=== PATIENT | male | born 1940 | race Caucasian/White ===

== ENCOUNTER 2021-08-07 13:27 | Outpatient (CLI) | payer MEDICARE, BC, SELFPAY ==
--- NOTE | 2021-08-07 13:45 | CRLHL7_ITS ---
For Patients: As a result of the Century Cures Act, medical imaging exams and procedure reports are released immediately into your electronic medical record. You may view this report before your referring provider. If you have questions, please contact your health care provider. Indication: Cervical myelopathy. Technique: MRI of the cervical spine was performed without the use of intravenous contrast. Comparison: Thoracic spine MRI the same day. Findings: The cervical vertebral body heights are maintained without fracture. No marrow infiltrative process. Mild to moderate multilevel disc height loss and desiccation. Straightening with slight reversal of the cervical lordosis. No abnormal cord signal. C2-3: No spinal canal or neural foraminal narrowing. C3-4: Disc osteophyte complex with mild spinal canal narrowing. Moderately severe right and moderate left neural foraminal narrowing secondary to uncovertebral and facet hypertrophy. Potential impingement of the right C4 nerve. C4-5: Mild disc bulge with mild spinal canal narrowing. Moderately severe bilateral neural foraminal narrowing secondary to uncovertebral and facet hypertrophy. Potential impingement of the C5 nerves. C5-6: Disc osteophyte complex with mild spinal canal narrowing. Severe left with mild to moderate right neural foraminal narrowing secondary to uncovertebral joint and facet hypertrophy. Potential impingement of the left C6 nerve. C6-7: Disc osteophyte complex with mild spinal canal narrowing. Moderately severe bilateral neural foraminal narrowing secondary to uncovertebral and facet hypertrophy. Potential impingement of the C7 nerves. C7-T1: No spinal canal or neural foraminal narrowing. Impression: 1. At C3-4, mild spinal canal with moderately severe right and moderate left neural foraminal narrowing. Potential right C4 nerve impingement. 2. At C4-5, mild spinal canal with moderately severe bilateral neural foraminal narrowing. Potential bilateral C5 nerve impingement. 3. At C5-6, mild spinal canal with severe left and [id number] right neural foraminal narrowing. Potential impingement of the left C6 nerve. 4. At C6-7, mild spinal canal with moderately severe bilateral neural foraminal narrowing. Potential impingement of the C7 nerves. Dictated by Karl Fermin MD @ 08/07/2021 4:36:52 PM (Electronically Signed)
--- NOTE | 2021-08-07 14:30 | CRLHL7_ITS ---
For Patients: As a result of the Century Cures Act, medical imaging exams and procedure reports are released immediately into your electronic medical record. You may view this report before your referring provider. If you have questions, please contact your health care provider. Indication: Thoracic myelopathy. Technique: Multiplanar, multisequence MRI of the thoracic spine was performed without the use of intravenous contrast. Comparison: MRI cervical spine the same day. Findings: The thoracic vertebral body heights are maintained without fracture. No marrow infiltrative process. Mild multilevel disc height loss and desiccation. Slight exaggeration of the upper thoracic kyphosis. No significant spondylolisthesis. No abnormal cord signal. T10-11: mild to moderate bilateral neural foraminal narrowing secondary to facet hypertrophy. Mild spondylosis throughout the remaining thoracic spine, without overt evidence of spinal canal or neuroforaminal compromise. Impression: 1. At T10-11, mild to moderate bilateral neural foraminal narrowing. 2. Mild multilevel spondylosis throughout the remaining thoracic spine without high-grade spinal canal or neural foraminal narrowing. 3. No abnormal cord signal. Dictated by Karl Fermin MD @ 08/07/2021 4:41:38 PM (Electronically Signed)
== END 2021-08-07 13:28 | disposition home or self-care (01) ==
LOC: MRI 13:31
PROVIDERS: PCP Family Medicine; Visit Provider Orthopaedic Surgery Orthopaedic Surgery of the Spine
DX: G95.9 Disease of spinal cord, unspecified (principal); M50.21 Other cervical disc displacement, high cervical region; M50.222 Other cervical disc displacement at C5-C6 level; M50.223 Other cervical disc displacement at C6-C7 level
CPT/HCPCS: 72141; 72146

== ENCOUNTER 2021-11-26 15:22 | Outpatient (CLI) | payer MEDICARE, BC, SELFPAY ==
--- NOTE | 2021-11-26 15:30 | CRLHL7_ITS ---
For Patients: As a result of the Century Cures Act, medical imaging exams and procedure reports are released immediately into your electronic medical record. You may view this report before your referring provider. If you have questions, please contact your health care provider. Indication: Right buttock and leg pain Technique: Multiplanar, multisequence, MRI of the lumbar spine, obtained without contrast. Comparison: MRI lumbar spine 06/26/2021 Findings: The lumbar lordosis is preserved. Grade 1 anterolisthesis at L3-4, similar. Interval changes of L4-5 decompressive laminectomy. No suspicious fluid collections. No acute osseus abnormality. Possible degenerative cystic change at the left L4 superior articular process, similar. Small facet joint effusions at L3-4 and L4-5. The conus medullaris terminates at approximately L1. No suspicious findings in the prevertebral and paraspinal soft tissues. Partial bony ankylosis across the left SI joint. T12-L1: No significant neural foramen or spinal canal stenosis. L1-L2: No significant neural foramen or spinal canal stenosis. L2-L3: Facet arthropathy. No significant foraminal or spinal canal stenosis. Anterolisthesis, L3-L4: Minimal anterolisthesis, facet arthropathy. No significant foraminal or spinal canal stenosis. L4-L5: Decompressive laminectomy, shallow disc bulge, facet arthropathy. Spinal canal now appears widely patent. Mild left, moderate right foraminal stenosis. L5-S1: Facet arthropathy. Mild left foraminal narrowing. No spinal canal stenosis. Impression: 1. Interval changes of L4-5 decompressive laminectomy. Spinal canal at this level now appears widely patent. 2. No acute osseous abnormality or suspicious fluid collection. 3. Residual moderate right foraminal stenosis at L4-5, and mild left foraminal narrowing at L4-5 and L5-S1. 4. 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 Dictated by Janeen Delgado MD @ 11/27/2021 9:57:14 AM (Electronically Signed)
== END 2021-11-26 15:23 | disposition home or self-care (01) ==
LOC: MRI 15:22
PROVIDERS: PCP Family Medicine; Visit Provider Orthopaedic Surgery
DX: M79.604 Pain in right leg (principal); M48.061 Spinal stenosis, lumbar region without neurogenic claudication; M53.3 Sacrococcygeal disorders, not elsewhere classified
CPT/HCPCS: 72148

== ENCOUNTER 2022-01-05 14:22 | Outpatient (CLI) | payer MEDICARE, BC, SELFPAY | END 2022-01-05 14:23 | disposition home or self-care (01) | PROVIDERS: PCP Family Medicine; Visit Provider Family Medicine | DX: M17.12 Unilateral primary osteoarthritis, left knee (principal); M25.562 Pain in left knee | CPT/HCPCS: 64454 ==

== ENCOUNTER 2022-01-26 13:14 | Outpatient (CLI) | payer MEDICARE, BC, SELFPAY | END 2022-01-26 13:15 | disposition home or self-care (01) | LOC: INJ CL 13:14 | PROVIDERS: PCP Family Medicine; Visit Provider Family Medicine | DX: M17.12 Unilateral primary osteoarthritis, left knee (principal); G89.29 Other chronic pain; M25.562 Pain in left knee | CPT/HCPCS: 64624; J2250; J3010 ==

== ENCOUNTER 2022-09-21 17:04 | Outpatient (CLI) | payer MEDICARE, BC, SELFPAY ==
--- NOTE | 2022-09-21 17:30 | MR_ITS ---
EXAM: MRI OF THE LEFT ANKLE AND HINDFOOT CLINICAL INFORMATION: The patient is a 81-year-old with left ankle pain. PRIOR SURGERY: None reported. COMPARISON STUDIES: No prior studies are available for comparison. TECHNICAL INFORMATION: Imaging was performed on a high-field, 1.5 Jacqueline MR scanner. Sagittal proton-density, T2, and STIR imaging of the left ankle and hindfoot was performed in addition to coronal proton-density and coronal T2 imaging. Axial proton-density and T2 imaging was also produced. FINDINGS: Osseous structures: Fat-suppressed imaging of the distal tibia and distal fibula shows no evidence for marrow edema or cortical injury. There is no evidence for fracture. No evidence for acute bony abnormality of the talus or calcaneus can be seen. 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 Os trigonum: No os trigonum is identified. No definite MR signs of posterior impingement are seen. Tarsal coalition: No calcaneonavicular, talocalcaneal or cubonavicular coalition is present. Tibiotalar joint: Effusion: Mild. Nonspecific subcutaneous soft tissue edema and/or hemorrhage can be seen circumferentially about the ankle. Ganglion cyst: None. Osteochondral surfaces: Chondromalacia and chondral thinning along the articular surfaces of the tibiotalar joint can be seen. No definite evidence for osteochondral fragmentation along the articular surfaces is present. Loose bodies: None. Subtalar joint: Effusion: None. Articular cartilage: No chondral or osteochondral abnormality identified. Tarsal joints: Talonavicular: Within normal limits. Calcaneocuboid: Within normal limits. 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 Ligamentous structures: Syndesmotic Ligaments: The lateral syndesmotic ligaments appear intact. No widening of the syndesmosis can be seen. Lateral Ligaments: The anterior talofibular, calcaneofibular, and posterior talofibular ligaments appear intact. No impinging mass within the lateral gutter is identified. Medial Ligaments: The superficial and deep components of the medial deltoid ligamentous complex appear intact. Spring Ligaments: Intact. Sinus Tarsi: Intact cervical and interosseous ligaments. Flexor tendons: Posterior tibial: Normal, without tendinopathy, tenosynovitis or tear. Flexor digitorum longus: Normal. Flexor hallucis longus: Normal, without convincing pathologic tenosynovitis. Peroneus longus and brevis: Mild tendinosis of the peroneus longus and brevis can be seen with mild tenosynovitis. No well-defined tearing is identified. There is no evidence for peroneal rupture or dislocation. Extensor tendons: Tibialis anterior: Normal, without tendinopathy, tenosynovitis or tear. Extensor hallucis longus: Normal. Extensor digitorum longus: Normal. Achilles tendon: Mild changes of Achilles tendinosis are present and can be seen on sagittal series 6 image 14. No evidence for well-defined transverse tearing is noted. Minimal fluid is seen within the retrocalcaneal bursa. Plantar aponeurosis: No evidence for plantar fasciitis or plantar fascia tearing. Neurovascular structures: No definite neurovascular abnormalities are seen. The tarsal tunnel is within normal limits. CONCLUSION: 1. 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 2. Mild degenerative changes of the tibiotalar joint with chondromalacia and chondral thinning along the articular surfaces. 3. The ligamentous structures of the ankle and hindfoot appear intact. 4. Mild tendinosis and tenosynovitis of the peroneus longus and brevis. 5. Mild Achilles tendinosis. 6. No neurovascular abnormalities about the ankle or hindfoot can be seen. [facility]EC Electronically signed on 09/22/2022 6:57:00 AM by Robert Jones M.D.
== END 2022-09-21 17:05 | disposition home or self-care (01) ==
LOC: MRI 17:05
PROVIDERS: PCP Family Medicine; Visit Provider Family Medicine
DX: M25.572 Pain in left ankle and joints of left foot (principal); M94.272 Chondromalacia, left ankle and joints of left foot; M19.072 Primary osteoarthritis, left ankle and foot
CPT/HCPCS: 73721

== ENCOUNTER 2022-11-09 14:18 | Outpatient (CLI) | payer MEDICARE, BC, SELFPAY | END 2022-11-09 14:19 | disposition home or self-care (01) | LOC: INJ CL 14:20 | PROVIDERS: PCP Family Medicine; Visit Provider Family Medicine | DX: M17.12 Unilateral primary osteoarthritis, left knee (principal); M25.562 Pain in left knee | CPT/HCPCS: 64454 ==

== ENCOUNTER 2022-11-30 12:02 | Outpatient (CLI) | payer MEDICARE, BC, SELFPAY | END 2022-11-30 12:03 | disposition home or self-care (01) | PROVIDERS: PCP Family Medicine; Visit Provider Family Medicine | DX: M17.12 Unilateral primary osteoarthritis, left knee (principal); M25.562 Pain in left knee; G89.29 Other chronic pain | CPT/HCPCS: 64624; J2250; J3010 ==

== ENCOUNTER 2023-03-28 10:35 | Outpatient (CLI) | payer MEDICARE, BC, SELFPAY ==
--- NOTE | 2023-03-28 12:31 | W.ANESCHARGE ---
Anesthesia Charges Start Date/Time Anesthesia Start Date: 03/28/23 Anesthesia Start Time: 12:23 Stop Date/Time Anesthesia Stop Date: 03/28/23 Anesthesia Stop Time: 12:46 Summary Extremes of Age - Over 70 or under 1: MDA
--- NOTE | 2023-03-28 12:50 | W.ANESCHARGE ---
Anesthesia Charges Start Date/Time Anesthesia Start Date: 03/28/23 Anesthesia Start Time: 12:23 Stop Date/Time Anesthesia Stop Date: 03/28/23 Anesthesia Stop Time: 12:46
== END 2023-03-28 10:36 | disposition home or self-care (01) ==
LOC: OP CLINIC 10:36
PROVIDERS: PCP Family Medicine; Visit Provider Internal Medicine Gastroenterology
DX: K63.5 Polyp of colon (principal); K57.30 Diverticulosis of large intestine without perforation or abscess without bleeding; Z86.010 Personal history of colon polyps
CPT/HCPCS: 00811; 45380; 45385; 88305; 99100; J2704

== ENCOUNTER 2024-07-21 04:43 | Emergency (ER) | payer MEDICARE, BC, SELFPAY ==
--- OUTSIDE RECORDS SUMMARY | 2022-06-09 06:30 | XMS_ITS | Continuity of Care Document ---
Author Organization [facility] enter Address [address] [place] [address] Phone Care Team Providers Care Outside Sales Advertising Executive Name Role Phone [facility] Unavailable Unava ilable Procedures Procedure Date INTERLAMINAR LMBR OR SAC Advance Directives Directive Yes / No Effective Date File Name No Information Encounters Encounter Description Practice Location Reason(s) For Visit Diagnoses Date Provider Providers Copied on Encounter [facility], [address] [place] [address], [id number], tel:[phone] [facility] No Information [facility]. [address] [place] [address], [id number], . tel:[phone] Referring Provider: Nilda Arevalo, [address] [place], [address] . tel:[phone] Family History Family Member Type Diagnosis Age At Onset No Information Payers Payer name Insurance type Covered democrat ID Authoriza tion(s) [place] [employer] [place] Medicare Replacement BL [id number] Social History Type Description Quantity Date Captured Comments Sex Male Smoking Status No Information Chief Complaint And Reason For Visit No Information Reason For Referral Reason For Referral No Information History Of Present Illness Encounter Date Complaint History Of Prese nt Illness No Information Functional Status Date Functional Assessmen t No Information Instructions Date Instruction Additional Infor mation No Information Assessments Type Assessment Date No Information Patient Care Teams Name Effective Dates (start - stop) Status Members No Information
--- OUTSIDE RECORDS SUMMARY | 2022-06-09 06:30 | XMS_ITS | Continuity of Care Document ---
Author Organization [facility] enter Address [address] [place] [phone] Phone Care Team Providers Care Clinical Esthetician Name Role Phone [facility] Unavailable Unava ilable Procedures Procedure Date INTERLAMINAR LMBR OR SAC Advance Directives Directive Yes / No Effective Date File Name No Information Encounters Encounter Description Practice Location Reason(s) For Visit Diagnoses Date Provider Providers Copied on Encounter [facility], [address] [place] [address], [id number], tel:[phone] [facility] No Information [facility]. [address] [place] [address], [id number], . tel:[phone] Referring Provider: Nilda Arevalo, [address] [place], [address] . tel:[phone] Family History Family Member Type Diagnosis Age At Onset No Information Payers Payer name Insurance type Covered green party ID Authoriza tion(s) [place] [employer] [place] Medicare Replacement BL [id number] Social History Type Description Quantity Date Captured [...]
--- OUTSIDE RECORDS SUMMARY | 2022-06-16 06:40 | XMS_ITS | Continuity of Care Document ---
Author Organization [facility] Address [address] [place] [address] Care Team Providers Care Pitting Machine Operator Name Role Phone Yang Arredondo CRNA Unavailable Unavailable Procedures Procedure Date Percutaneous Image guided injection, dra cardoso, or Advance Directives Directive Yes / No Effective Date File Name No Information Encounters Encounter Description Practice Location Reason(s) For Visit Diagnoses Date Provider Providers Copied on Encounter [facility], [address] [place], [place], [id number], [facility] No Information 3 Arnulfo Soria. [facility], [address] [place], [place], [id number] , . tel:[phone] Referring Provider: Nilda Arevalo, [address] [place], [address] . tel:[phone] Family History Family Member Type Diagnosis Age At Onset No Information Payers Payer name Insurance type Covered republican ID Authorsanjanaa dominique(s) [place] [employer] [place] Medicare Replacement BL [id number] Social History Type Description Quantity Date Captured [...]
--- OUTSIDE RECORDS SUMMARY | 2022-06-16 06:40 | XMS_ITS | Continuity of Care Document ---
Author Organization [facility] Address [address] [place] [address] Care Team Providers Care Customer Services Supervisor Name Role Phone Yang Arredondo CRNA Unavailable Unavailable Procedures Procedure Date Percutaneous Image guided injection, dra cardoso, or Advance Directives Directive Yes / No Effective Date File Name No Information Encounters Encounter Description Practice Location Reason(s) For Visit Diagnoses Date Provider Providers Copied on Encounter [facility], [address] [place], [place], [id number], [facility] No Information 3 Arnulfo Soria. [facility], [address] [place], [place], [id number] , . tel:[phone] Referring Provider: Nilda Arevalo, [address] [place], [address] . tel:[phone] Family History Family Member Type Diagnosis Age At Onset No Information Payers Payer name Insurance type Covered alliance party ID Authorsanjanaa dominique(s) [place] [employer] [place] Medicare Replacement BL [id number] Social History Type Description Quantity Date Captured [...]
--- OUTSIDE RECORDS SUMMARY | 2022-08-06 05:22 | XMS_ITS | Continuity of Care Document ---
Author Organization [facility] Address [address] [place] [address] Phone Care Team Providers Care College Sports Assistant Name Role Phone Nilda Arevalo MD Unavailable Unavailable Allergies, Adverse Reactions, Alerts Substance Reaction Status Criticality Sulfa (Sulfonamide Antibiotics) Rash Active No Information Medications Medication Instructions Dosage Effective Dates (start - stop) Status Comments levothyroxine 150 mcg tablet Take 1 Tablet (150 mcg) by mouth before breakfast. - Active finasteride 5 mg tablet Take 1 Tablet (5 mg) by mouth every morning. - Active aspirin 81 mg tablet,delayed release Take 1 Tablet (81 mg) by mouth once daily with a meal. - Active Tresiba FlexTouch U-100 insulin 100 unit/mL (3 mL) subcutaneous pen Inject 90 units subcutaneous at bedtime. Adjust as necessary to max of 100 units per day. - Active nitroglycerin 0.[address] 1 tablet under the tongue every 5 minutes if needed for chest pain. max 3 tablets/15 minutes. - Active cephalexin 500 mg capsule TAKE 4 CAPSULES BY MOUTH 1 HOUR PRIOR TO DENTAL APPOINTMENT. - Active tramadol 50 mg tablet One oral twice isabel ly as needed pain. - Active omeprazole 20 mg capsule,delayed release Take 1 Capsule (20 mg) by mouth once daily before a meal. Take 30-60 minutes before a meal/food once a day. - Active amlodipine 10 mg tablet Take 1 Tablet (10 mg) by mouth once daily. - Active Senna-S 8.6 mg-50 mg tablet Take 1-4 Tablets by mouth in the morning and 1-4 Tablets in the evening. - Active polyethylene glycol 3350 17 gram oral powder packet Take 17 g by mouth or nasogastric tube once daily if needed for Constipation. - Active acetaminophen 500 mg tablet Take 2 Tablets (1,000 mg) by mouth four times daily 6 hours apart. Max acetaminophen dose: 4000mg in 24 hrs. - Active insulin lispro (U-100) 100 unit/mL subcutaneous pen [The details of the medication are not available because there are pending changes by a home health clinician.] - Active losartan 100 mg tablet Take 1 Tablet (10 0 mg) by mouth once daily. - Active metoprolol tartrate 50 mg tablet Take 1 Tablet (50 mg) by mouth 2 times daily. - Active rosuvastatin 40 mg tablet Take 1 Tablet (40 mg) by mouth at bedtime. - Active lorazepam 0.5 mg tablet Take 1 tablet by mouth every 6 hours if needed for Anxiety. - Active Procedures Procedure Date INTERLAMINAR LMBR OR SAC Psych Dx Eval OFFICE/OUTPATIENT VISIT, EST OFFICE/OUTPATIENT VISIT, NEW Advance Directives Directive Yes / No Effective Date File Name No Information Encounters Encounter Description Practice Location Reason(s) For Visit Diagnoses Date Provider Providers Copied on Encounter [facility], [address] [place] [address], [id number] , [place] tel:[phone] [facility] No Information 3 Mickey Larry [address] [facility] [place], [id number] , [place]. tel:[phone] [facility], [address] [place] [address] [place], [place], [id number] , [place] tel:[phone] [facility] Chronic pain syndrome 3 Mickey Larry [address] [facility], [place], [place], [id number] , [place]. tel:[phone] Referring Provider: Jorge Luis Olmedo [facility] [address] [place], [address]. tel:[phone] Psych Dx Eval [facility], [address] [place], [place], [id number] , [place] tel:[phone] Telehealth Pain disorder with related psychological factors 3 Helen Del Rosario. [address] [facility] [place], [place], [id number] , [place]. tel:[phone] OFFICE/OUTPA TIENT VISIT, [facility], [address] [place] [address], [id number] , [place] tel:[phone] [facility] Widespread pain (chief complaint) Chronic pain syndromePain in right hipPain in left hipPain in right kneePain in left kneePain in right footPain in left footOther terminal computer operator (current) drug therapyPostlamine ctomy syndrome, not elsewhere classified 3 Blaire Heather. [address], [place], [place], [id number] , [place]. tel:[phone] Referring Provider: Jorge Luis Olmedo [facility] [address] [place], [address]. tel:[phone] [facility], [address] [place] [address], [id number] , [place] tel:[phone] [facility] No Information 3 Chuyita Mosquedacy. [address] [facility] [address], [facility], [place], [id number] , [place]. tel:[phone] OFFICE/OUTPA TIENT VISIT, [facility], [address] [place], [place], [id number] , [place] tel:[phone] [facility] Widespread pain (chief complaint) Chronic pain syndromeLow back pain, unspecifiedPain in left hipPain in right hipPain in left footPain in right footOther longterm (current) drug therapyPain in left kneePain in right kneeEncounter for therapeutic drug level monitoring 3 Blaire Herbertse. [address] [facility] [address], [place], [id number] , [place]. tel: [phone] Referring Provider: Jorge Luis Olmedo, [facility] [address] [facility], [place], [address]. [phone] [facility], [address] [place], [place], [id number] , [place] tel: [phone] [facility] No Information 3 Blaire Herbertse. [address] [facility] [address], [place], [id number] , [place]. tel: [phone] Family History Family Member Type Diagnosis Age At Onset Problem Family history of Osteoporos is Payers Payer name Insurance type Covered constitution party ID Roberto fox(s) [place] [employer] [place] Medicare Replacement BL [id number] Social History Type Description Quantity Date Captured Comments Sex Male Smoking Status No Information Chief Complaint And Reason For Visit No Information Reason For Referral Reason For Referral No Information Plan Of Treatment Date Type Action Status Goal Height. Due on d ue Goal Review Allergy List. Due on due Goal PHQ-9. Due on du e Goal Zoster vaccine (1st). Due on due Goal Update Social History. Due o n due Goal Medication Reconciliation. D ue on due Goal Hepatitis C screening. Due o n due Goal Weight. Due on d ue Goal Unhealthy drug use screening . Due on due Goal Tobacco Use. Due on 023 due Goal Review Allergy List. Due on due Goal Zoster vaccine (1st). Due on due Goal Medication Reconciliation. D ue on due Goal Update Social History. Due o n due Goal Hepatitis C screening. Due o n due Goal PHQ-9. Due on du e Goal Weight. Due on d ue Goal Height. Due on d ue Goal Unhealthy drug use screening . Due on due Goal Tobacco Use. Due on 023 due Goal Unhealthy drug use screening . Due on due Goal Hepatitis C screening. Due o n due Goal Zoster vaccine (1st). Due on due Goal Height. Due on d ue Goal Weight. Due on d ue Goal Medication Reconciliation. D ue on due Goal Review Allergy List. Due on due Goal PHQ-9. Due on du e Goal Tobacco Use. Due on 023 due Goal Update Social History. Due o n due Goal Hepatitis C screening. Due o n due Goal Zoster vaccine (1st). Due on due Goal Height. Due on d ue Goal Weight. Due on d ue Goal Medication Reconciliation. D ue on due Goal Review Allergy List. Due on due Goal PHQ-9. Due on du e Goal Tobacco Use. Due on 023 due Goal Update Social History. Due o n due Goal Unhealthy drug use screening . Due on due History Of Present Illness Encounter Date Complaint History Of Prese nt Illness Comments: Yang marcum s a 81 y/o man here for initial follow up consult regarding chronic pain from his waist down. S/p laminectomy in August 2021 at [facility]. He experiences constant buttock pain, BL hip pain, BL knee pain, BL foot pain, and left ankle pain/swelling. Continues to report difficulty walking. Reports that his BL feet are bone on bone which causes a substantial amount of pain, limiting him from walking. Endorses that his BL feet are a prominent source of his pain.He is accompanied by his , Alcira, who contributes to today's discussion of careJohn underwent heart valve replacement and recently began cardiac rehab which he states was difficult for him d/t his ongoing lower extremity pain and pain in his feet. He is interested in the IT pain pump and would like to know more about it. He is interested in trialling.No other concerns today. Widespread pain Duration: chroni c. Location of the pain is lower back, bilateral hip, bilateral knee and BLE. The client describes it as sharp, achy, burning and tingling. It occurs persistently. Symptom is aggravated by bending, walking upstairs, walking downstairs, running, sitting, standing, walking, lifting, housework, movement and prolonged positions. Relieving factors include lying down. Pertinent negatives include diarrhea, fatigue, fever and incontinence (urinary). Widespread pain Severity level i s 10. Duration: chronic. The client describes it as deep. It occurs persistently. Symptom is aggravated by walking upstairs, walking downstairs, walking and movement. Relieving factors include stretching and rest. Pertinent negatives include diarrhea, dyspnea, fever and incontinence (urinary). Comments: Yang i s a 81 y/o man here for initial consult regarding chronic pain from his waist down. Pain is characterized as deep and pain level averages 10/10. S/p laminectomy in August 2021 at [facility]. Per pt, carries dx of lumbar spinal stenosis and bone spurs on L5.Also reports hx of knee and hip replacements, as well as hx of fracture of right hip for which hardware was placed and subsequently revised. States that the cartilage in his left knee is completely diminished. Notes constant buttock pain, BL hip pain, BL foot pain, and left ankle pain/swelling. States that he has difficulty walking which he would like to improve.Recently underwent heart valve replacement and plans to begin cardiac rehab soon.For pain management, patient has tried PT through [facility] in Fall 2021 without benefit, radiofrequency ablations and nerve blocks with Dr. Jorge Luis Olmedo without benefit, Gabapentin, Metaxalone, Ibuprofen, Naproxen, Prednisone, Tylenol, topical creams, Tramadol, Hydrocodone, and Oxycodone. He has also trialled some CBD products without much benefit, though endorses that a topical CBD cream tamed his knee pain for a few hours.Yang is interested in pain management through [facility]. States that he open to trialling different options to subdue his pain, though would like to avoid any further surgical intervention. Shares that he is an avid bird watcher and would like to be able to improve his ambulation to partake in this and other activities. No other concerns today. Functional Status Date Functional Assessmen t No Information Instructions Date Instruction Additional Infor mation No Information Assessments Type Assessment Date No Information Patient Care Teams Name Effective Dates (start - stop) Status Members No Information
--- OUTSIDE RECORDS SUMMARY | 2022-08-06 05:22 | XMS_ITS | Continuity of Care Document ---
Author Organization [facility] gopi Address [address] [place] [address] Phone Care Team Providers Care Grooming Salon Manager Name Role Phone Nilda Arevalo MD Unavailable [...] Diagnoses Date Provider Providers Copied on Encounter [facility], [address] [place] [address], [id number] , [place] tel:[phone] [facility] No Information 3 Mickey Larry [address] [facility] [place], [id number] , [place]. tel:[phone] [facility], [address] [place] [address] [place], [place], [id number] , [place] tel:[phone] [facility] Chronic pain syndrome 3 Mickey Larry [address] [facility], [place], [place], [id number] , [place]. tel:[phone] Referring Provider: Jorge Luis Olmedo [facility] [address] [place], [address]. tel:[phone] Psych Dx Eval [facility], [address] [place], [place], [id number] , [place] tel:[phone] Telehealth Pain disorder with related psychological factors 3 Helen Del Rosario. [address] [facility] [place], [place], [id number] , [place]. tel:[phone] OFFICE/OUTPA TIENT VISIT, [facility], [address] [place] [address], [id number] , [place] tel:[phone] [facility] Widespread pain (chief complaint) Chronic pain syndromePain in right hipPain in left hipPain in right kneePain in left kneePain in right footPain in left footOther exterminator (current) drug therapyPostlamine ctomy syndrome, not elsewhere classified 3 Blaire Heather. [address] [facility] [address], [place], [place], [id number] , [place]. tel:[phone] Referring Provider: Jorge Luis Olmedo [facility] [address] [place], [address]. tel:[phone] [facility], [address] [place] [address], [id number] , [place] tel:[phone] [facility] No Information 3 Chuyita Mosquedacy. [address] [facility] [address], [facility], [place], [id number] , [place]. tel:[phone] OFFICE/OUTPA TIENT VISIT, [facility], [address] [place], [place], [id number] , [place] tel:[phone] [facility] Widespread pain (chief complaint) Chronic pain syndromeLow back pain, unspecifiedPain in left hipPain in right hipPain in left footPain in right footOther mcc (current) drug therapyPain in left kneePain in right kneeEncounter for therapeutic drug level monitoring 3 Blairedivine Herbertse. [address] [facility] [address], [place], [id number] , [place]. tel: [phone] Referring Provider: Jorge Luis Olmedo, [facility] [address] [facility], [place], [address]. [phone] [facility], [address] [place], [id number] , [place] tel: [phone] [facility] [place] No Information 3 Blaire Heather. [address] [facility] [address], [place], [id number] , [place]. tel: [phone] Family History Family Member Type Diagnosis Age At Onset Problem Family history of Osteoporos is Payers Payer name Insurance type Covered republican ID Roberto fox(s) [employer] Replacement BL [id number] Social History Type Description Quantity Date Captured Comments Sex Male Smoking Status No Information Chief Complaint And Reason For Visit No Information Reason For Referral Reason For Referral No Information Plan Of Treatment Date Type Action Status Goal Tobacco Use. Due on 023 due Goal Unhealthy drug use screening . Due on due Goal Weight. Due on d ue Goal Hepatitis C screening. Due o n due Goal Medication Reconciliation. D ue on due Goal Update Social History. Due o n due Goal Zoster vaccine (1st). Due on due Goal PHQ-9. Due on du e Goal Review Allergy List. Due on due Goal Height. Due on d ue Goal Hepatitis C screening. Due o n due Goal PHQ-9. Due on du e Goal Weight. Due on d ue Goal Height. Due on d ue Goal Unhealthy drug use screening . Due on due Goal Tobacco Use. Due on due Goal Review Allergy List. Due on due Goal Zoster vaccine (1st). Due on due Goal Medication Reconciliation. D ue on due Goal Update Social History. Due o n due Goal Update Social History. Due o n due Goal Tobacco Use. Due on due Goal PHQ-9. Due on du e Goal Review Allergy List. Due on due Goal Medication Reconciliation. D ue on due Goal Weight. Due on d ue Goal Height. Due on d ue Goal Zoster vaccine (1st). Due on due Goal Hepatitis C screening. Due o n due Goal Unhealthy drug [...] Date Complaint History Of Prese nt Illness Widespread pain Duration: chroni c. Location of [...] include diarrhea, fatigue, fever and incontinence (urinary). Comments: Yang marcum s a 81 y/o man here for initial follow up consult regarding chronic pain from his waist down. S/p laminectomy in August 2021 at [facility]. He experiences constant buttock pain, BL [...] in trialling.No other concerns today. Widespread pain Severity level i s 10. [...] 10/10. S/p laminectomy in August 2021 at [facility]. Per pt, carries dx of lumbar [...] pain management, patient has tried PT through [facility] in Fall 2021 without benefit, [...]
[2024-07-21] VITALS (15 sets, daily range): BP systolic 121–161; BP diastolic 75–113; PULSE 65–77; RESP 20; TEMP 36.6; O2SAT 88–96; BMI 38.7
--- OUTSIDE RECORDS SUMMARY | 2024-07-21 04:46 | XMS_ITS | Clinical Summary ---
Author Organization [facility] Address [address] [place] [address] Care Team Providers Care Log Inspector Name Role Phone Bar Lawson Primary Care Provider [phone] Allergies Active Allergy Reactions Criticality Noted Date Comments Clindamycin Rash Low 11/27/2019 Glipizide Diarrhea 04/08/2020 Lisinopril Cough 11/27/2019 Metformin Diarrhea 04/08/2020 Penicillins Rash Low 11/27/2019 Sulfa Antibiotics Rash Low 11/27/2019 Medications SEMAGLUTIDE,0.2 5 OR 0.5MG/DOS, SC Inject 0.25 mg Subcutaneous once a week wednesdays Active aspirin 81 MG EC tablet Take 81 mg by mouth daily Active finasteride (PROSCAR) 5 MG tablet Take 5 mg by mouth daily Active insulin degludec (TRESIBA) 100 UNIT/ML pen Inject 35 Units Subcutaneous At Bedtime Active amLODIPine (NORVASC) 10 MG tablet Take 10 mg by mouth At Bedtime Active levothyroxine (SYNTHROID/LEVO THROID) 150 MCG tablet Take 150 mcg by mouth daily Active losartan (COZAAR) 100 MG tablet Take 100 mg by mouth At Bedtime Active metoprolol tartrate (LOPRESSOR) 25 MG tablet Take 25 mg by mouth 2 times daily Active rosuvastatin (CRESTOR) 40 MG tablet Take 40 mg by mouth At Bedtime Active senna (SENOKOT) 8.6 MG tabletIndicatio ns:Painful orthopaedic hardware Take 1 tablet by mouth 2 times daily as needed for constipation 40 tablet 1 Active acetaminophen (TYLENOL) 500 MG tabletIndicatio ns:Painful orthopaedic hardware Take 2 tablets (1,000 mg) by mouth every 6 hours as needed for mild pain 50 tablet 1 Active ondansetron (ZOFRAN-ODT) 4 MG ODT tabIndications: Painful orthopaedic hardware Take 1 tablet (4 mg) by mouth every 8 hours as needed for nausea 10 tablet 1 Active Social History Tobacco Use Types Packs/Day Years Used Date Smoking Tobacco: Former Cigarettes Q uit: 02/08/1984 Smokeless Tobacco: Never Alcohol Use Standard Drinks/Week Comments Not Currently 0 (1 standard drink = 0.6 oz pur e alcohol) Adolescent Education Answer Date Record ed Getting School Help Needed Not on file 11/14 Sex and Gender Information Value Date Recorded Sex Assigned at Not on file 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 Gender Identity Not on file Sexual Orientation Not on file Last Filed Vital Signs Vital Sign Reading Time Taken Comments Blood Pressure 138/91 04/16/2020 12:09 PM BANK CLERK Pulse 58 04/16/2020 10:58 AM BANK CLERK Temperature 36.5 C (97.7 F) 04/16/2020 11:24 AM BANK CLERK Respiratory Rate 12 04/16/2020 10:58 AM BANK CLERK Oxygen Saturation 100% 04/16/2020 12:09 PM BANK CLERK Inhaled Oxygen Concentration - - Weight 113.4 kg (250 lb) 04/16/2020 6:24 AM BANK CLERK Height 180.3 cm (5' 11) 04/16/2020 6:24 AM BANK CLERK Body Mass Index 34.87 04/16/2020 6:24 AM BANK CLERK Plan of Treatment Health Maintenance Due Date Last Done Comments ANNUAL REVIEW OF HM ORDERS 1942 LIPID 1942 TSH W/FREE T4 REFLEX 1942 DTAP/TDAP/TD VACCINE (1 - Tdap) 12/17/1967 FALL RISK ASSESSMENT 12/17/2007 RSV VACCINE (1 - 1-dose 75+ series) 2017 COVID-19 VACCINE ( season) 2023 03/27/2020, 03/06/2020 PHQ-2 (once per calendar year) 2024 INFLUENZA VACCINE (Season Ended) 2024 11/28/2019, 10/23/2018, 12/13/2017, Additional history exists ADVANCE CARE PLANNING 05/06/2025 05/06/2020 PNEUMOCOCCAL VACCINE 50+ YEARS Completed 03/26/2014, 03/06/2010, 11/30/2005 ZOSTER VACCINE Completed 01/09/2019, 11/02/2018 COLONOSCOPY Discontinued 09/10/2019 COLORECTAL CANCER SCREENING Discontinued CT COLONOGRAPHY Discontinued FIT Discontinued FLEX SIG Discontinued HPV VACCINE Aged Out No longer eligi ble based on patient's age to complete this topic MENINGITIS VACCINE Aged Out No longer eligible based on patient's age to complete this topic sDNA (Cologuard) Discontinued Medical Devices Implanted Type Area Merchandise Deliverer Device Identifier Shelf Expiration Date Model / Serial / Lot Tfna Fenestrated Screw 95mm Implanted:Qty: 1 on 04/16/2020 by Osorio Leal MD at [facility] Right: Hip Depuy 01/06/2030 [id number] / / [id number] Insurance [facility] MEDICARE Advance Directives For more information, please contact: [phone] Documents on File Type Date Recorded Patient Cement Finisher Apprentice Expl anation Advance Directives and Living Will 05/06/2020 1:23 PM Health Care Directiv e 01/18/2020 Healthcare Agents on File Name Relationship Healthcare Agent Relationship Communication Frances Powers Spouse Health Care Agent Saul Powers Son First Alternate Health Care Agent Care Teams Log Inspector Relationship Specialty Start Date End Date Bar Lawson PCP - General Family Practice 11/19/19
--- OUTSIDE RECORDS SUMMARY | 2024-07-21 04:46 | XMS_ITS | Clinical Summary ---
Author Organization [employer] [facility] Address [address] [place] [id number] Care Team Providers Care [place] Examiner Name Role Phone Bar Lawson MD Primary Care Provider Jossy Smith RN Unavailable [phone] Maryam Baron PharmD Unavailable [phone] Allergies Active Allergy Reactions Criticality Noted Date Comments Amoxicillin Rash High 11/15/2018 Carvedilol Other - Describe In Comment Field 12/23/2022 Headache, dizzy, others. Clindamycin Rash High 07/05/2007 Pt had severe itching Other reaction(s): ITCHING Diatrizoate Allergen *Unknown 01/13/2022 Hydromorphone Other - Describe In Comment Field 04/03/2024 vomiting Glipizide Other - Describe In Comment Field,Diarrhea 07/21/2018 multiple Empagliflozin Rash 10/10/2018 Groin rash Lisinopril Cough 12/13/2017 Metformin Nausea Only,Diarrhea 05/03/2018 Feels poorly GI and otherwise Metoprolol Other - Describe In Comment Field 12/29/2023 Bradycardia, dizzy, fatigue. Semaglutide Other - Describe In Comment Field 06/12/2020 Abdomen pain with neg abdomen CT and normal amylase and lipase Penicillin V Itching Low 11/15/2018 Penicillins Rash Low 04/16/2006 Sulfa (Sulfonamide Antibiotics) Rash 04/16/2006 Unlisted Allergen (Include Detail In Comments) *Unknown High 11/15/2018 Medications multivitamin (MVI) tablet Take 1 tablet by mouth once daily. 0 10/03/19 10 Active omega-3 fatty acids-vitamin E (FISH OIL) 1,000 mg cap Take 1 capsule. by mouth once daily. 0 10/03/19 10 Active blood-glucose meterIndications: Controlled type 2 diabetes mellitus with complication, without long-term current use of insulin (HC) Dispense meter, test strips, lancets covered by pt ins. E11.9 NIDDM type II - Test 1 time/day 1 Device 10/24/19 19 Active acetaminophen (TYLENOL EXTRA STRGTH) 500 mg tablet Take 2 Tablets (1,000 mg) by mouth four times daily 6 hours apart. Max acetaminophen dose: 4000mg in 24 hrs. 0 08/29/19 22 Active WalkerIndications :History of lumbar laminectomy for spinal cord decompression Walker with front wheels for home use. 1 Each 08/29/19 22 Active Compact Space Chamber use as directed 09/04/19 22 Active nitroglycerin (NITROSTAT) 0.4 mg sublingual tabletIndications :Atherosclerosis of coronary artery of [place] heart without angina pectoris, unspecified vessel or lesion type Place 1 tablet under the tongue every 5 minutes if needed for chest pain. max 3 tablets/15 minutes. 25 Tablet 1 11/17/19 22 Active MAGNESIUM GLYCINATE ORAL Take 1 Tablet by mouth once daily. Active aspirin (ECOTRIN) 81 mg enteric coated tabletIndications :Atherosclerosis of [place] coronary artery of [place] heart without angina pectoris Take 1 Tablet (81 mg) by mouth once daily with a meal. 0 03/12/19 23 Active CPAPIndications:O SA (obstructive sleep apnea) RESMED CPAP (E0601) machine for home use at pressure: 11.6 cmw, Choice of mask (A7030 or A7034) w/full face cushion (A7031) x1/mo, nasal cushion (A7032) x2/mo, or nasal pillows (A7033) x 2/mo; Length of Need: 99 months; Frequency of use: Daily 1 Each 11 10/05/19 24 Active Insulin Cypress, Disposable, (UltiCare Pen Needle) 31 gauge x 1/4Indications:C ontrolled type 2 diabetes mellitus without complication, without long-term current use of insulin (HC) use once daily to administer insulin 100 Each 3 10/28/19 24 Active lancets (Microlet Lancet)Indication s:Controlled type 2 diabetes mellitus with complication, without long-term current use of insulin (HC) use to test blood glucose once daily. 100 Each 3 11/15/19 24 Active blood sugar diagnostic (Contour Next Test Strips) stripIndications: Controlled type 2 diabetes mellitus with complication, without long-term current use of insulin (HC) TEST ONE TIME PER DAY. 100 Each 3 11/20/19 24 Active olmesartan (BENICAR) 40 mg tabletIndications :Essential hypertension Take 1 Tablet (40 mg) by mouth once daily. 90 Tablet 3 12/06/19 24 Active finasteride (PROSCAR) 5 mg tabletIndications :BPH with urinary obstruction TAKE ONE TABLET BY MOUTH IN THE MORNING 90 Tablet 2 12/11/19 24 Active levothyroxine (SYNTHROID) 150 mcg tabletIndications :Hypothyroidism due to acquired atrophy of thyroid Take 1 Tablet (150 mcg) by mouth before breakfast. 90 Tablet 3 12/29/19 24 Active omeprazole (PRILOSEC) 20 mg Delayed-Release capsuleIndication s:Gastroesophagea l reflux disease, unspecified whether esophagitis present take 1 capsule by mouth once daily 30 TO 60 minutes before food/meal. 90 Capsule 2 03/11/19 25 Active dapagliflozin propanediol (FARXIGA) 10 mg tabletIndications :Controlled type 2 diabetes mellitus with complication, without long-term current use of insulin (HC) Take 1 Tablet (10 mg) by mouth once daily. 90 Tablet 1 04/03/19 25 Active Lantus Solostar U-100 Insulin 100 unit/mL (3 mL) penIndications:Co ntrolled type 2 diabetes mellitus without complication, without long-term current use of insulin (HC) Inject 86 units subcutaneous before bedtime. Product desired: LANTUS SOLOSTAR 90 mL 1 04/03/19 25 Active rosuvastatin (CRESTOR) 40 mg tabletIndications :Mixed hyperlipidemia Take 1 Tablet (40 mg) by mouth at bedtime. 90 Tablet 3 04/03/19 25 Active cephalexin 500 mg capsuleIndication s:History of joint replacement, unspecified joint TAKE 4 CAPSULES BY MOUTH 1 HOUR PRIOR TO DENTAL APPOINTMENT. 12 Capsule 1 04/11/19 25 Active amLODIPine 10 mg tabletIndications :HTN (hypertension) Take 1 Tablet (10 mg) by mouth once daily. 90 Tablet 1 04/26/19 25 Active clotrimazole 1 % creamIndications: Yeast dermatitis of penis Apply topically to affected area(s) two times daily. 45 g 05/07/19 25 Active suzetrigine 50 mg tabletIndications :Right leg pain Take 1 tablet orally twice daily as needed for pain. 36 Tablet 3 06/22/19 25 Active psyllium powdIndications:C onstipation, acute Mix 1 tsp in liquid then take by mouth once daily if needed for Constipation. 07/05/19 25 Active LORazepam (ATIVAN) 0.5 mg tabIndications:An xiety Take 1 tablet by mouth every 6 hours if needed for Anxiety. 20 tablet 12/14/19 18 025 Discontin ued(*Med complete/ Regimen complete/ Level of care change) polyethylene glycol (MIRALAX; GLYCOLAX) 17 g powder for solution Take 17 g by mouth or nasogastric tube once daily if needed for Constipation. 0 08/29/19 22 025 Discontin ued(*Med complete/ Regimen complete/ Level of care change) sennosides-docusa te (SENOKOT S) (8.6-50 mg) tabletIndications :History of lumbar laminectomy for spinal cord decompression Take 1-4 Tablets by mouth in the morning and 1-4 Tablets in the evening. 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 Plan repeat in 1 year. Esophageal stricture 09/27/2019 Controlled type 2 diabetes ulysses alarcon with complication, without long-term current use of insulin 03/30/2019 FAHAD 10/07/1999 AHI-27 12/13/2016 Obesity (BMI 30-39.9) 08/06/2016 Mixed hyperlipidemia 08/06/2016 Knee osteoarthritis 01/19/2013 Hypothyroid 09/11/2012 Hepatic steatosis 02/10/2012 Coronary atherosclerosis 04/16/2006 Overview (03/12/2022): - 2001: BMS LAD - 2003: ISR LAD s/p RAINER - angiogram 03/12/22: 40% mLAD lesion Esophageal reflux 04/16/2006 Overview (10/03/2009): EGD 09/2009 reflux Unspecified essential hypertension 04/16/2006 Unspecified hyperplasia of p rostate without urinary obstruction and other lower urinary tract symptoms (LUTS) 04/16/2006 Non-rheumatic mitral regurgitation 04/16/2006 Resolved Problems Problem Noted Date Diagnosed Date Resolved Date Anticoagulation monitoring, INR range 2-3 06/04/2022 10/18/2022 Controlled type 2 diabetes m dorian with stage 3 chronic kidney disease, without long-term current use of insulin 04/03/2020 021 Hoarse voice quality 09/27/2019 023 Severe aortic stenosis 08/08/201804/03 Proteinuria 09/07/2016 12/29/2022 Aortic stenosis, mild 05/26/20152018 Anticoagulation monitoring, goal range 1.7-2.5 04/24/2013 05/07/2013 Obesity, unspecified 02/10/2012 015 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 09/11/2012 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 thyroidectomy Right Lobe-06/08/07----showed papillary cancer 0.3 cm Partial thyroidectomy Left Lobe-06/27/07-----negative for thyroid cancer MACIS score is < 6 - 99% 20-year survival Other and unspecified hyperlipidemia 04/16/2006 09/07/2016 Unspecified sleep apnea 04/16/200607/2016 HX OF COLONIC POLYPS 04/16/2006 021 Overview (09/11/2019): Colonoscopy 02/2014 polyps repeat in 5 years Colonoscopy 09/2019 three polyps, repeat in 3 years Atherosclerosis of aorta 04/16/2006 Hemorrhage of gastrointestin al tract, unspecified 05/02/1994 05/06/1994 Diabetes mellitus type II, controlled 03/30/2019 Severe aortic stenosis 04/21 Encounters Date Type Department Care Team Description 07/04/2024 2:30 PM CDT Pharmacist Medication Management [facility] [address] [place] [address] Maryam Baron PharmD Pharmacist Medication Management ([facility] initial - insurance referral - phone visit) 07/04/2024 Travel 06/29/2024 Travel 05/25/2024 Telephone [facility] [address] [place] [address] Bar Lawson MD Prior Authorization (suzetrigine 50 mg tab - DENIED) 05/21/2024 10:19 AM CDT - 05/21/2024 11:59 PM CDT Hospital Encounter [facility] [address] [place] [address] Alexa Mcgrath MD Tierney, Doreen A, [employer]IAN Pharyngoesophageal dysphagia 05/21/2024 Travel 04/25/2024 Refill [facility] [address] [place] [id number] Esteban Moncada MD Refill Request (Amlodipine) 04/21/2024 Orders Only [facility] [address] [place] [address] Bar Lawson MD <No scans attached> from Last 3 Months Immunizations Immunization Administration Dates Next Due AMB Influenza, IIV3 (Age >=3 years)(Flu Clinic Only) 11/16/2011 COVID-19 VACCINE SPIKEVAX (M ODERNA 50MCG/0.5ML) 12YO+ PFS 04/28/2023,12/17/2022 COVID-19 vaccine (Pfizer-Bio NTech 30mcg/0.3mL) 12YO+ BIVALENT PF, MDV 05/27/2022,10/28/2021 COVID-19 vaccine (Pfizer-Bio NTech 30mcg/0.3mL) 12YO+ NIMESH-SUCROSE PF, MDV 06/18/2021 COVID-19 vaccine (Pfizer-Bio NTech 30mcg/0.3mL) PF, MDV 12/15/2020,03/27/2020,03/06/2020 Influenza A (H1N1), Inactiva mauricio (Age >=3 Years) 02/10/2009 Influenza, High-dose Inactivated 024,11/20/2015,01/07/2015,11/27 Influenza, IIV3 (Age >=3 years) 11/22/19 13,11/27/2010,10/30/2008,12/10,11/15/2006,11/30/2005 Influenza, Inactivated AIIV4 (Age 65+ Years) Preserv Free 12/17/2022,11/18/2021,12/15/2020,11/27 Influenza, Inactivated IIV3 (Age 65+ Years) Preserv Free 10/23/2018,12/13/2017,12/13/2016 Pneumococcal Conj 20-valent (Prevnar 20) 03/29/2022 Pneumococcal Poly,23-Valent (Pneumovax) 03/06/2010,11/30/2005 Pneumococcal conj 13-Valent (Prevnar 13) 03/26/2014 RSV, Recombinant ADJ Reconst ituted (Arexvy 120MCG/0.5mL) 12/24/2022 Td (Age >=7 Years) 04/13/2006 Tdap 04/30/2024,03/26/2014,04/13/2006 Zoster (Shingrix-RZV, recombinant) 01/09,01/09/2019,11/02/2018,11/02 Family History Medical History Relation Name Comments Alcohol/Drug Brother Heart Disease Father AAA a ge 58. Hyperlipidemia Father Hypertension Father Heart Disease Mother CHF, mother 94 Osteoporosis Mother Hyperlipidemia Paternal Grandfather Anesthesia Problem No Family History Relation Name Status Comments Brother Father (Age 96) Non heali ng legs wounds Mother (Age 58) AAA Paternal Grandfather Social History Tobacco Use Types Packs/Day Years Used Date Smoking Tobacco: Former Cigarettes 1 20 0 02/08/1960 - 02/08/1980 Smokeless Tobacco: Never Tobacco Cessation:Counseling Given: No Comments:quit in 1980 Alcohol Use Standard Drinks/Week Comments No 0 (1 standard drink = 0.6 oz pur e alcohol) PHQ-2 Answer Date Recorded PHQ-2 TOTAL SCORE 0 12/29/2023 Social Connections Answer Date Recorded Do you often feel lonely or isolated from those around you? 0 12/29/2023 Financial Resource Strain Answer Date R ecorded Difficulty of Paying Living Expenses 3 12/29/2023 Difficulty of Paying Living Expenses Not on file 12/29/2023 Food Insecurity Answer Date Recorded Do you worry your food will run out before you are able to buy more? 1 12/29/2023 Transportation Needs Answer Date Record ed Does lack of transportation keep you from medica l appointments? 1 12/29/2023 Does lack of transportation keep you from work, meetings or getting things that you need? 1 12/29/2023 Housing Stability Answer Date Recorded What is your housing situation today? 1 12/29/2023 Utilities Answer Date Recorded Do you have trouble paying f or utilities (for example, heat, electricity, water, phone)? 1 12/29/2023 Sex and Gender Information Value Date Recorded Sex Assigned at Not on file Legal Sex Male 5:24 AM PLATE MOUNTER Gender Identity Not on file Sexual Orientation Not on file Occupation Industry Job Start Date Job End Date retired Not on file Not on file Not on file Obstetrics History Last Filed Vital Signs Vital Sign Reading Time Taken Comments Blood Pressure 130/56 04/03/2024 11:11 AM PLATE MOUNTER Pulse 89 04/03/2024 11:11 AM PLATE MOUNTER Temperature 36.4 C (97.5 F) 10/28/2022 7:42 AM CDT Respiratory Rate 21 05/14/2022 3:00 PM CDT Oxygen Saturation 94% 04/03/2024 11:11 AM PLATE MOUNTER Inhaled Oxygen Concentration - - Weight 121 kg (266 lb 12.8 oz) 04/03/2024 11:11 AM PLATE MOUNTER Height 177 cm (5' 9.69) 12/29/2023 2:25 PM PLATE MOUNTER Body Mass Index 38.63 12/29/2023 2:25 PM PLATE MOUNTER Plan of Treatment Upcoming Encounters Date Type Department Care Team (Late st Contact Info) Description 08/02/2024 12:30 PM CDT Office Visit [facility] [address] [place] [address] Armani Guerra MD [address] [place] [address] 08/13/2024 1:00 PM CDT Ancillary Procedure [facility] [address] [place] [address] 10/01/2024 11:15 AM CDT Orders Only [address] [address] [place], [place] 10/01/2024 11:45 AM CDT Office Visit [facility] [address] [place] [address] Bar Lawson MD [address] [place] [address] Health Maintenance Due Date Last Done Comments COVID-19 vaccine series ( season) 2024 10/12/2023, 04/28/2023, 12/17/2022, Additional history exists BMI (ht and wt on same day) for age 18+ 12/28/2024 12/29/2023, 03/03/2023, 12/17/2022, Additional history exists Depression screening for age 12+ 12/28/2024 12/29/2023, 12/18/2022, 12/17/2022, Additional history exists Medicare Wellness for age 65+ 12/29/2024 12/29/2023, 12/17/2022, 09/23/2021, Additional history exists Tetanus booster 04/30/2034 04/30/2024, 03/10, 04/13/2006, Additional history exists Zoster (shingles) series for age 50+ Completed 01/09/2019, 01/09/2019, 11/02/2018, Additional history exists Pneumococcal series for age 50+ Completed 03/29/2022, 03/26/2014, 03/06/2010, Additional history exists RSV vaccine for adults or Completed 12/24/2022 Influenza Vaccine Completed 11/14/2023, , 11/18/2021, Additional history exists Tdap Completed 04/30/2024, 03/10, 04/13/2006 Hepatitis B series for 19+ Aged Out N o longer eligible based on patient's age to complete this topic Goals Goal Patient Goal Type Associated Problems Recent Progress Patient-Stated? Author BLOOD PRESSURE-MA INTAINS BP LESS THAN 130/80 Blood Pressure No Delroy Clayton MD Procedures Procedure Name Priority Date/Time Associated Diagnosis Comments XR VIDEO SWALLOW W SPEECH Routine 05/21/2024 10:55 AM CDT Pharyngoesophageal dysphagia from Last 3 Months Results * XR VIDEO SWALLOW AND TREATMENT W SPEECH (05/21/2024 10:55 AM CDT) Anatomical Region Laterality Modality Esophagus Computed Radiogr aphy, Other 05/21/2024 11:0 4 AM CDT Narrative 05/21/2024 11:04 AM CDT For Patients: As a result of the Cures Act, medical imaging exams and procedure reports are released immediately into your electronic medical record. You may view this report before your referring provider. If you have questions, please contact your health care provider. INDICATION: Pharyngeal esophageal dysphagia. TECHNIQUE: Video swallowing study. Fluoroscopy time 91 seconds. Multiple cine images. FINDINGS: Normal emptying of the oral cavity and triggering of the autonomic swallowing response. There is flash laryngeal penetration with thin liquids and nectar which does not occur with pudding or solid substances. No evidence of tracheal aspiration. There is degenerative spurring in the mid cervical spine and there is mild prominence of the cricopharyngeal muscle complex on the posterior cervical esophagus at the level of C4-5 which is a common finding. No apparent evidence of stenosis. The barium tablet was swallowed without incident. Please see the speech therapist`s report for further details. Dictated by Nely Huggins MD @ 05/21/2024 11:04:38 AM (Electronically Signed) Procedure Note Paras Huggins MD - 05/21/2024 For Patients: As a result of the Cures Act, medical imagingexams and procedure reports are released immediately into your electronicmedical record. You may view this report before your referring provider.If you have questions, please contact your health care provider. INDICATION: Pharyngeal esophageal dysphagia. TECHNIQUE: Video swallowing study. Fluoroscopy time 91 seconds. Multiple cine images. FINDINGS: Normal emptying of the oral cavity and triggering of the autonomicswallowing response. There is flash laryngeal penetration with thinliquids and nectar which does not occur with pudding or solid substances.No evidence of tracheal aspiration. There is degenerative spurring in the mid cervical spine and there is mildprominence of the cricopharyngeal muscle complex on the posterior cervicalesophagus at the level of C4-5 which is a common finding. No apparentevidence of stenosis. The barium tablet was swallowed without incident. Please see the speech therapist`s report for further details. Dictated by Nely Huggins MD @ 05/21/2024 11:04:38 AM (Electronically Signed) Alexa Mcgrath MD FLUOROSCOPY Final Re sult from Last 3 Months Insurance [employer] BLUE MR PB ONLY [employer] BLUE HB ONLY MEDICARE PART A HB ONLY MEDICARE PART B HB ONLY [employer] BL[employer] HB ONLY MEDICARE PPS Advance Directives Documents on File Type Date Recorded Patient Fill Manager Expl anation POLST 12/05/2019 3:46 PM POLST * Full Code (Latest Code Status on File) Date Activated Date Inactivated Comments 04/14/2022 4:22 PM 04/15/2022 2:05 PM Question Answer Comments Code Status Discussion: Reviewed Preferences * Full Code Date Activated Date Inactivated Comments 03/12/2022 11:49 AM 03/12/2022 9:13 PM Question Answer Comments Code Status Discussion: Reviewed Preferences * Full Code Date Activated Date Inactivated Comments 08/27/2021 1:32 PM 08/28/2021 5:08 PM Question Answer Comments Code Status Discussion: Other * Full Code Date Activated Date Inactivated Comments 11/30/2018 10:40 AM 12/01/2018 5:54 PM Care Teams [place] Examiner Relationship Specialty Start Date End Date Bar Lawson MD [address] [facility] [place] [address] PCP - General Family Practice 08/06/16 Jossy Smith, RN [address] [place] [address] [place] 11/20/20 Maryam Baron PharmD [address] [facility] [place] [address] Pharmacist Medication Management Pharmacology 07/04/24 07/05/27
--- NOTE | 2024-07-21 04:52 | ED_ITS ---
HPI - General Adult General Chief complaint: Abdominal Pain Stated complaint: abdominal pain Time Seen by Provider: 07/21/24 04:52 History of Present Illness HPI narrative: R sided abd pain starting around a few days ago but has been getting worse tonight. pain does not radiate. pain is sharp and constant. pain is worse with movement. denies hx of similar events, denies diarrhea, fever , vomiting at home. had an alzaseltzer around 0300, last PO food 1800 yesterday 83-year-old man presenting to the emergency department Monitor these constipated but has had rather hard stools lately. Related Data Home Medications ?Medication ?Instructions ?Recorded ?Confirmed amlodipine 10 mg tablet 10 mg PO DAILY 07/21/2407/08 dapagliflozin propanediol 10 mg 10 mg PO DAILY 5 07/21/24 tablet (Farxiga) finasteride 5 mg tablet 5 mg PO QAM 07/21/24 5 insulin glargine 100 unit/mL (3 86 unit subcut QPM 07/21/24 mL) subcutaneous pen (Lantus Solostar U-100 Insulin) levothyroxine 150 mcg tablet 150 mcg PO QAM 07/21/24 0 07/21/24 losartan 100 mg tablet 100 mg PO DAILY 07/21/24 olmesartan 40 mg tablet 40 mg PO DAILY 07/21/2407/08 omeprazole 20 mg capsule,delayed 20 mg PO DAILY 07/21/24 release rosuvastatin 40 mg tablet 40 mg PO QPM 07/21/24 suzetrigine 50 mg tablet (Journavx) 50 mg PO BID 07/2107/21/24 Previous Rx's ?Medication ?Instructions ?Recorded cephalexin 500 mg capsule 2,000 mg (4 x 500 mg) PO ONC E #4 10/26/22 caps Allergies Allergy/AdvReac Type Severity Reaction Status Date / Time amoxicillin Allergy Intermediate Rash Verified 08/20/21 13:50 clindamycin Allergy Intermediate itching Verified 08/20/21 13:50 penicillin V Allergy Mild itching Verified 08/20/21 13:50 Iodinated Contrast Media Allergy Unknown Verified 04/25/23 14:21 Sulfa (Sulfonamide Allergy Rash Verified 04/25/23 14:21 Antibiotics) [facility] Medical History (Updated 04/29/23 @ 10:45 by Brionna Alvarado) Hip fracture requiring operative repair ?S72.009A - Fracture of unspecified part of neck of unspecified femur, initial encounter for closed fracture (ICD-10) Obstructive sleep apnea ?G47.33 - Obstructive sleep apnea (adult) (pediatric) (ICD-10) Thyroid cancer (2007) ?C73 - Malignant neoplasm of thyroid gland (ICD-10) Diabetes ?E11.9 - Type 2 diabetes mellitus without complications (ICD-10) Surgical History (Updated 04/29/23 @ 10:22 by Brionna Alvarado) History of open reduction and internal fixation (ORIF) procedure (2020) ?Z98.890 - Other specified postprocedural states (ICD-10) S/P TURP (status post transurethral resection of prostate) ?Z90.79 - Acquired absence of other genital organ(s) (ICD-10) History of back surgery (~2020) ?Z98.890 - Other specified postprocedural states (ICD-10) History of excision of mass (04/20/06) ?Z98.890 - Other specified postprocedural states (ICD-10) History of partial thyroidectomy (06/07/07) ?E89.0 - Postprocedural hypothyroidism (ICD-10) H/O partial thyroidectomy (06/28/07) ?E89.0 - Postprocedural hypothyroidism (ICD-10) History of open reduction and internal fixation (ORIF) procedure (01/09/15) ?Z98.890 - Other specified postprocedural states (ICD-10) History of arthroscopy of right knee (05/22/03) ?Z98.890 - Other specified postprocedural states (ICD-10) History of heart artery stent ?Z95.5 - Presence of coronary angioplasty implant and graft (ICD-10) 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) ?Z96.642 - Presence of left artificial hip joint (ICD-10) 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 Guards. Positive Espinoza's? Overweight. Const: Vital Signs, click to edit/add: Vital Signs - 24 hr 07/21/24 04:48 Temperature 98 F Pulse Rate [Pulse Oximeter] 75 Respiratory Rate 20 Blood Pressure [Ri ght Upper Arm] 161/113 H Pulse Oximetry 96 Oxygen Delivery Me thod Room Air Documenting provider has reviewed patient's vital signs: yes Course Vital Signs Vital signs: Initial Vital Signs Temperature 98 F 07/21/24 04:48 Temperature Source Temporal Artery Scan 07/21/24 04:48 Pulse Rate 75 07/21/24 04:48 Respiratory Rate 20 07/21/24 04:48 Blood Pressure 161/113 H 07/21/24 04:48 Blood Pressure Mean 129 H 07/21/24 04:48 Blood Pressure Position Semi-Fowlers 07/21/24 04:48 Pulse Oximetry 96 07/21/24 04:48 Oxygen Delivery Method Room Air 07/21/24 04:48 Vital Signs Temperature 98 F 07/21/24 04:48 Pulse Rate 75 07/21/24 04:48 Respiratory Rate 20 07/21/24 04:48 Blood Pressure 161/113 H 07/21/24 04:48 Pulse Oximetry 96 07/21/24 04:48 Oxygen Delivery Method Room Air 07/21/24 04:48 Temperature 98 F 07/21/24 04:48 Pulse Rate 75 07/21/24 04:48 Respiratory Rate 20 07/21/24 04:48 Blood Pressure 161/113 H 07/21/24 04:48 Pulse Oximetry 96 07/21/24 04:48 Oxygen Delivery Method Room Air 07/21/24 04:48 Discharge Plan Discharge Prescriptions: No Action amlodipine 10 mg tablet 10 mg PO DAILY levothyroxine 150 mcg tablet 150 mcg PO QAM omeprazole 20 mg capsule,delayed release(DR/EC) 20 mg PO DAILY losartan 100 mg tablet 100 mg PO DAILY finasteride 5 mg tablet 5 mg PO QAM olmesartan 40 mg tablet 40 mg PO DAILY rosuvastatin 40 mg tablet 40 mg PO QPM insulin glargine [Lantus Solostar U-100 Insulin] 100 unit/mL (3 mL) insulin pen 86 unit subcut QPM dapagliflozin propanediol [Farxiga] 10 mg tablet 10 mg PO DAILY Journavx 50 mg tablet 50 mg PO BID cephalexin 500 mg capsule 2,000 mg PO ONCE Qty: 4 3RF Follow Up/Referrals: Bar Lawson MD [Primary Care Provider, Family Practice]
[2024-07-21 05:21] LABS: Hematocrit 45.1 % (37.0-53.0); Hemoglobin* 15.5 gm/dL (13.5-17.5); Lymphocytes Percent Auto 18.2 % (20-44); Mean Corpuscular HGB Conc 34 gm/dL (32-36); Mean Corpuscular Hemoglobin 31 pg (26-34); Mean Corpuscular Volume 89 fL (80-100); Monocytes Percent Auto 14.1 % (0.0-11.0); Neutrophils Percent Auto 60.1 % (42.0-72.0); Platelet Count* 207 K/uL (140-440); RDW Coefficient of Variation % 15.1 % (11.5-15.5); Red Blood Count 5.08 m/uL (4.30-5.90); White Blood Count* 8.04 K/uL (4.50-11.00)
[2024-07-21 05:22] LABS: Basophils Absolute Auto 0.02 K/uL (0.00-0.30); Basophils Percent Auto 0.2 % (0.0-3.0); Eosinophils Percent Auto 7.2 % (0.0-7.0); Immature Granulocytes Abs Auto 0.02 K/uL (0.00-0.30); Immature Granulocytes Pct Auto 0.2 %; Neutrophils Absolute Auto 4.83 K/uL (1.7-7.0)
[2024-07-21 05:32] LABS: Slide Review Reflex No
[2024-07-21 05:39] LABS: Albumin* 4.4 g/dL (3.3-5.0); Chloride* 105 mmol/L (96-114); Potassium* 3.6 mmol/L (3.6-5.1); Sodium* 143 mmol/L (135-149)
[2024-07-21 05:41] LABS: Appearance Urine Clear (Clear); Bilirubin Urine Negative (Negative); Blood Urine Negative (Negative); Color Urine Yellow (Yellow); Glucose Urine 2+ (Negative); Ketones Urine Negative (Negative); Leukocyte Esterase Urine Negative (Negative); Nitrite Urine Negative (Negative); Protein Urine 1+ (Negative); Specific Gravity Urine 1.015 (1.000-1.030); Urobilinogen Urine 0.2 (0.2-1.0); pH Urine 6.5 (5.0-8.5)
[2024-07-21 05:42] LABS: Alanine Aminotransferase* 18 U/L (4-50); Alkaline Phosphatase* 83 U/L (40-150); Anion Gap 11 mEq/L (7-15); Aspartate Amino Transferase* 24 U/L (12-35); Bilirubin Direct* 0.2 mg/dL (0.0-0.5); Blood Urea Nitrogen* 19 mg/dL (7-30); Carbon Dioxide* 27 mmol/L (20-32); Creatinine* 1.1 mg/dL (0.5-1.5); Est. Creatinine Clearance* 54.38; Estimated Glomerular Filt Rate 67 ml/min; Lipase* 71 U/L (23-300); Total Protein* 7.8 g/dL (6.0-8.3)
[2024-07-21 05:43] LABS: Glucose* 113 mg/dL (60-115)
[2024-07-21 05:45] LABS: C Reactive Protein* 1.5 mg/dL (0.5-1.0)
[2024-07-21 05:46] LABS: Bacteria Urine QNS; RBC Urine QNS (0-2); Squamous Epithelial Cell Urine QNS (None-Few); WBC Urine QNS (0-5)
--- NOTE | 2024-07-21 06:01 | ED.GENADULT ---
HPI - General Adult General Chief complaint: Abdominal Pain Stated complaint: abdominal pain Time Seen by Provider: 07/21/24 04:52 History of Present Illness HPI narrative: R sided abd pain starting around a few days ago but has been getting worse tonight. pain does not radiate. pain is sharp and constant. pain is worse with movement. denies hx of similar events, denies diarrhea, fever , vomiting at home. had an alzaseltzer around 0300, last PO food 1800 yesterday 83-year-old man presenting to the emergency department with concern of right-sided abdominal pain that is been going on now blood 2 days. It has been worsening tonight. Sharp. There is also some pleuritic nature to it any gestures than to middle upper abdomen as location of the discomfort. Worse with any movement. He does struggle with constipation has been having other hard stools. This is a chronic issue. No fever. Vomiting. Tried [place] without relief. Has had little cough lately. Has been thinking that he might have appendicitis. Noted to be hypoxic later on ambulating to the bathroom. He does report sleep apnea and faithfully uses his CPAP. History of diabetes. Clarification later after small amount of urine produced he does apparently have some degree of urinary retention or less frequent voids says he has been having trouble voiding lately since suzetrigine. Less frequent and then large amounts. Related Data Home Medications ?Medication ?Instructions ?Recorded ?Confirmed amlodipine 10 mg tablet 10 mg PO DAILY 07/21/24 07/21/24 dapagliflozin propanediol 10 mg 10 mg PO DAILY 07/21/24 07/21/24 tablet (Farxiga) finasteride 5 mg tablet 5 mg PO QAM 07/21/24 07/21/24 insulin glargine 100 unit/mL (3 86 unit subcut QPM 07/21/24 07/21/24 mL) subcutaneous pen (Lantus Solostar U-100 Insulin) levothyroxine 150 mcg tablet 150 mcg PO QAM 07/21/24 07/21/24 losartan 100 mg tablet 100 mg PO DAILY 07/21/24 olmesartan 40 mg tablet 40 mg PO DAILY 07/21/24 07/21/24 omeprazole 20 mg capsule,delayed 20 mg PO DAILY 07/21/24 07/21/24 release rosuvastatin 40 mg tablet 40 mg PO QPM 07/21/24 07/21/24 suzetrigine 50 mg tablet (Journavx) 50 mg PO BID 07/21/24 07/21/24 Previous Rx's ?Medication ?Instructions ?Recorded cephalexin 500 mg capsule 2,000 mg (4 x 500 mg) PO ONCE #4 10/26/22 caps Allergies Allergy/AdvReac Type Severity Reaction Status Date / Time amoxicillin Allergy Intermediate Rash Verified 08/20/21 13:50 clindamycin Allergy Intermediate itching Verified 08/20/21 13:50 penicillin V Allergy Mild itching Verified 08/20/21 13:50 Iodinated Contrast Media Allergy Unknown Verified 04/25/23 14:21 Sulfa (Sulfonamide Allergy Rash Verified 04/25/23 14:21 Antibiotics) Review of Systems Status of ROS: Reports: 6 or more systems reviewed and unremarkable except as noted in History and below [facility] Medical History Hip fracture requiring operative repair ?S72.009A - Fracture of unspecified part of neck of unspecified femur, initial encounter for closed fracture (ICD-10) Obstructive sleep apnea ?G47.33 - Obstructive sleep apnea (adult) (pediatric) (ICD-10) Thyroid cancer (2007) ?C73 - Malignant neoplasm of thyroid gland (ICD-10) Diabetes ?E11.9 - Type 2 diabetes mellitus without complications (ICD-10) Surgical History History of open reduction and internal fixation (ORIF) procedure (2020) ?Z98.890 - Other specified postprocedural states (ICD-10) S/P TURP (status post transurethral resection of prostate) ?Z90.79 - Acquired absence of other genital organ(s) (ICD-10) History of back surgery (~2020) ?Z98.890 - Other specified postprocedural states (ICD-10) History of excision of mass (04/20/06) ?Z98.890 - Other specified postprocedural states (ICD-10) History of partial thyroidectomy (06/07/07) ?E89.0 - Postprocedural hypothyroidism (ICD-10) H/O partial thyroidectomy (06/28/07) ?E89.0 - Postprocedural hypothyroidism (ICD-10) History of open reduction and internal fixation (ORIF) procedure (01/09/15) ?Z98.890 - Other specified postprocedural states (ICD-10) History of arthroscopy of right knee (05/22/03) ?Z98.890 - Other specified postprocedural states (ICD-10) History of heart artery stent ?Z95.5 - Presence of coronary angioplasty implant and graft (ICD-10) 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 NAD. Mildly labored in breathing. Lungs appear clear. Heart in regular rate and rhythm. Distant. Abdomen is overweight and soft. He is tender in the right upper abdomen underneath the rib margin. Does guard to deeper palpation. Espinoza's positive? Little tender in the suprapubic area as well. Lower extremities with mild pretibial edema left little more than the right. He is particularly tender to palpation over the left lower leg. This is apparently chronic. Hemosiderin deposition over both lower legs. Const: Vital Signs, click to edit/add: Vital Signs - 24 hr 07/21/24 04:48 07/21/24 06:56 07/21/24 07:00 Temperature 98 F Pulse Rate 75 70 Pulse Rate [Pulse Oximeter] 75 Respiratory Rate 20 Blood Pressure Blood Pressure [Ri ght Upper Arm] 161/113 H Pulse Oximetry 96 88 92 Oxygen Delivery Me thod Room Air 07/21/24 07:03 07/21/24 07:15 07/21/24 07:17 Temperature Pulse Rate 73 70 77 Pulse Rate [Pulse Oximeter] Respiratory Rate Blood Pressure 121/81 128/83 Blood Pressure [Ri ght Upper Arm] Pulse Oximetry 95 94 93 Oxygen Delivery Me thod 07/21/24 07:30 07/21/24 07:32 07/21/24 07:45 Temperature Pulse Rate 76 71 76 Pulse Rate [Pulse Oximeter] Respiratory Rate Blood Pressure 136/75 Blood Pressure [Ri ght Upper Arm] Pulse Oximetry 95 94 91 Oxygen Delivery Me thod 07/21/24 07:47 07/21/24 07:48 07/21/24 08:01 Temperature Pulse Rate 75 68 69 Pulse Rate [Pulse Oximeter] Respiratory Rate Blood Pressure 127/88 Blood Pressure [Ri ght Upper Arm] Pulse Oximetry 92 94 94 [facility] Document[facility] provider has reviewed patient's vital signs: yes Course Vital Signs Vital signs: Initial Vital Signs Temperature 98 F 07/21/24 04:48 Temperature Source Temporal Artery Scan 07/21/24 04:48 Pulse Rate 75 07/21/24 04:48 Respiratory Rate 20 07/21/24 04:48 Blood Pressure 161/113 H 07/21/24 04:48 Blood Pressure Mean 129 H 07/21/24 04:48 Blood Pressure Position Semi-Fowlers 07/21/24 04:48 Pulse Oximetry 96 07/21/24 04:48 Oxygen Delivery Method Room Air 07/21/24 04:48 Vital Signs Temperature 98 F 07/21/24 04:48 Pulse Rate 75 07/21/24 04:48 Respiratory Rate 20 07/21/24 04:48 Blood Pressure 161/113 H 07/21/24 04:48 Pulse Oximetry 96 07/21/24 04:48 Oxygen Delivery Method Room Air 07/21/24 04:48 Temperature 98 F 07/21/24 04:48 Pulse Rate 69 07/21/24 08:01 Respiratory Rate 20 07/21/24 04:48 Blood Pressure 127/88 07/21/24 07:47 Pulse Oximetry 94 07/21/24 08:01 Oxygen Delivery Method Room Air 07/21/24 04:48 Medical Decision Making MDM Narrative Medical decision making narrative: I suspect more some degree of urinary tension and possibly gallbladder disease. Would collect urine and basic labs. Pending results likely imaging. Upper abdominal discomfort might be causing a little splinting of his breathing but he may also have a low-lying pneumonia or pleural effusion. Pain really appears to be abdominal in not in his chest to suggest pulmonary embolus. Minimal urine out. Not clearly infected though on the amount that was obtained. Did bladder scan though for over 400 mL. Labs are normal. Given degree of pain though I think it would be good idea to look further. CRP is elevated at 1.5. Labs are with normal white count and normal transaminases. Did order non contrasted CT scan of abdomen and pelvis which I think will be possible to get good images given body habitus and further has a contrast media allergy. Chest x-ray independently reviewed by me with some mild cardiomegaly and looks like some congestion but no effusion. CT scan independently reviewed by me does show cholelithiasis. Degree of stool might be contributing to some abdominal pain. Bladder looks distended as well. Radiology over-read below of chest x-ray INDICATION: Hypoxia COMPARISON: None. TECHNIQUE: 1 view chest radiograph. FINDINGS: Devices: None. Lung volumes are moderate. No focal consolidation. Prominent pulmonary vascular markings. Fine interstitial markings centrally. No pleural effusion. No pneumothorax. No pneumomediastinum. Heart size is enlarged. Atherosclerosis. Bones: No acute findings. IMPRESSION: Cardiomegaly and mild edema/pulmonary vascular congestion. Dictated by Jany Verma MD @ 07/21/2024 7:17:55 AM Radiology over-read of CT abdomen pelvis as below INDICATION: Right upper quadrant pain COMPARISON: April 07, 2021 TECHNIQUE: CT examination of the abdomen and pelvis was performed without intravenous contrast. Thin section axial images were obtained from the lung bases through the pubic symphysis. Oral contrast was not administered. Please note that all CT scans at this facility use dose modulation, iterative reconstruction, and/or weight-based dosing when appropriate to reduce radiation dose to as low as reasonably achievable. FINDINGS: LUNG BASES: Heart size top-normal atthe lung bases. Vascular calcifications. Aortic valve repair. Opacities at the lung bases are probably atelectatic and fibrotic. LIVER/BILIARY SYSTEM:Scattered hepatic lesions probably cysts. These were present previously. No biliary ductal dilation. There is cholelithiasis but there is no indication of acute cholecystitis or common duct obstruction. ADRENALS: Normal non-contrast appearance KIDNEYS, URETERS and BLADDER:Renal cortical scarring. Right-sided renal calcifications are likely vascular. Left lower pole renal stone. No obstructive uropathy on either side. The bladder is distended but otherwise unremarkable. SPLEEN:Normal non-contrast appearance. PANCREAS: Normal non-contrast appearance. RETROPERITONEUM and MESENTERY: There is no mass, adenopathy or aortic aneurysm. Atherosclerotic vascular calcifications GASTROINTESTINAL SYSTEM: There is no evidence of diverticulitis, colitis, mechanical obstruction, or appendicitis. The small bowel as visualized appears normal.Fecal retention. Diverticulosis. PELVIS: Poorly evaluated due to streak artifact from bilateral hip orthopedic hardware. As visualized, there is no acute abnormality.. OSSEOUS STRUCTURES and ABDOMINAL WALL: Degenerative changes. Fat containing umbilical hernia.No significant abdominal wall defect. OTHER: No free fluid or free air. IMPRESSION: 1. There is no specific reversible cause for right upper quadrant abdominal pain. 2. Incidental nonacute appearing findings as discussed in the body the report. Please review the comments. Please note that all CT scans at this facility use dose modulation, iterative reconstruction, and/or weight-based dosing when appropriate to reduce radiation dose to as low as reasonably achievable. Dictated by Anjel Rice MD @ 07/21/2024 7:17:24 AM Considering degree of discomfort on reexamination of the abdomen elevated CRP would like to further characterize abdomen with limited abdominal ultrasound. Lipase is pending -- now normal. Might have some degree of heart failure and benefit from diuresis. BNP is still pending. Handing off a change of shift Medical Records Medical records reviewed: Yes I reviewed the patient's medical records Lab Data Lab results reviewed: Yes I reviewed the patient's lab results Labs: Lab Results 07/21/24 07/21/24 07/21/24 Range/Units 04:55 05:30 06:25 WBC 8.04 (4.50-11.00) K/uL RBC 5.08 (4.30-5.90) m/uL Hgb 15.5 (13.5-17.5) gm/dL Hct 45.1 (37.0-53.0) % MCV 89 (80-100) fL MCH 31 (26-34) pg MCHC 34 (32-36) gm/dL RDW Coeff of Nicole 15.1 (11.5-15.5) % Plt Count 207 (140-440) K/uL Neut % (Auto) 60.1 (42.0-72.0) % Lymph % (Auto) 18.2 L (20-44) % [place] % (Auto) 14.1 H (0.0-11.0) % Eos % (Auto) 7.2 H (0.0-7.0) % Baso % (Auto) 0.2 (0.0-3.0) % Neut # (Auto) 4.83 (1.7-7.0) K/uL Lymph # (Auto) 1.50 (0.90-2.90) K/uL [place] # (Auto) 1.10 H (0.00-0.90) K/UL Eos # (Auto) 0.60 H (0.00-0.50) K/uL Baso # (Auto) 0.02 (0.00-0.30) K/uL Abs Immat Gran (auto) 0.02 (0.00-0.30) K/uL Imm/Tot Granulo (auto) 0.2 % Sodium 143 (135-149) mmol/L Potassium 3.6 (3.6-5.1) mmol/L Chloride 105 (96-114) mmol/L Carbon Dioxide 27 (20-32) mmol/L Anion Gap 11 (7-15) mEq/L BUN 19 (7-30) mg/dL Creatinine 1.1 (0.5-1.5) mg/dL Estimated Creat Clear 54.38 Estimated GFR 67 ml/min Glucose 113 (60-115) mg/dL Calcium 9.0 (8.4-10.6) mg/dL Total Bilirubin 1.0 (0.1-1.5) mg/dL Direct Bilirubin 0.2 (0.0-0.5) mg/dL AST 24 (12-35) U/L ALT 18 (4-50) U/L Alkaline Phosphatase 83 (40-150) U/L C-Reactive Protein 1.5 H (0.5-1.0) mg/dL NT-Pro-B Natriuret Pep 1190 H (See Note) pg/mL Total Protein 7.8 (6.0-8.3) g/dL Albumin 4.4 (3.3-5.0) g/dL Lipase 71 (23-300) U/L Urine Color Yellow (Yellow) Urine Appearance Clear (Clear) Urine pH 6.5 (5.0-8.5) Ur Specific [place] 1.015 (1.000-1.030) Urine Protein 1+ A (Negative) Urine Glucose (UA) 2+ A (Negative) Urine Ketones Negative (Negative) Urine Blood Negative (Negative) Urine Nitrite Negative (Negative) Urine Bilirubin Negative (Negative) Urine Urobilinogen 0.2 (0.2-1.0) Ur Leukocyte Esterase Negative (Negative) Urine RBC QNS Urine WBC QNS Ur Squamous Epith Cells QNS Urine Bacteria QNS Lab Acknowledgement Test Added Discharge Plan Discharge Clinical Impression: Abdominal pain, acute, right upper quadrant, Urinary retention, Pulmonary edema Prescriptions: No Action amlodipine 10 mg tablet 10 mg PO DAILY levothyroxine 150 mcg tablet 150 mcg PO QAM omeprazole 20 mg capsule,delayed release(DR/EC) 20 mg PO DAILY losartan 100 mg tablet 100 mg PO DAILY finasteride 5 mg tablet 5 mg PO QAM olmesartan 40 mg tablet 40 mg PO DAILY rosuvastatin 40 mg tablet 40 mg PO QPM insulin glargine [Lantus Solostar U-100 Insulin] 100 unit/mL (3 mL) insulin pen 86 unit subcut QPM dapagliflozin propanediol [Farxiga] 10 mg tablet 10 mg PO DAILY Journavx 50 mg tablet 50 mg PO BID cephalexin 500 mg capsule 2,000 mg PO ONCE Qty: 4 3RF Follow Up/Referrals: Bar Lawson MD [Primary Care Provider, Family Practice]
--- NOTE | 2024-07-21 06:08 | CRLHL7_ITS ---
For Patients: As a result of the Century Cures Act, medical imaging exams and procedure reports are released immediately into your electronic medical record. You may view this report before your referring provider. If you have questions, please contact your health care provider. INDICATION: Hypoxia COMPARISON: None. TECHNIQUE: 1 view chest radiograph. FINDINGS: Devices: None. Lung volumes are moderate. No focal consolidation. Prominent pulmonary vascular markings. Fine interstitial markings centrally. No pleural effusion. No pneumothorax. No pneumomediastinum. Heart size is enlarged. Atherosclerosis. Bones: No acute findings. IMPRESSION: Cardiomegaly and mild edema/pulmonary vascular congestion. Dictated by Jany Verma MD @ 07/21/2024 7:17:55 AM (Electronically Signed)
--- NOTE | 2024-07-21 06:08 | CRLHL7_ITS ---
For Patients: As a result of the Century Cures Act, medical imaging exams and procedure reports are released immediately into your electronic medical record. You may view this report before your referring provider. If you have questions, please contact your health care provider. INDICATION: Right upper quadrant pain COMPARISON: April 07, 2021 TECHNIQUE: CT examination of the abdomen and pelvis was performed without intravenous contrast. Thin section axial images were obtained from the lung bases through the pubic symphysis. Oral contrast was not administered. Please note that all CT scans at this facility use dose modulation, iterative reconstruction, and/or weight-based dosing when appropriate to reduce radiation dose to as low as reasonably achievable. FINDINGS: LUNG BASES: Heart size top-normal atthe lung bases. Vascular calcifications. Aortic valve repair. Opacities at the lung bases are probably atelectatic and fibrotic. LIVER/BILIARY SYSTEM:Scattered hepatic lesions probably cysts. These were present previously. No biliary ductal dilation. There is cholelithiasis but there is no indication of acute cholecystitis or common duct obstruction. ADRENALS: Normal non-contrast appearance KIDNEYS, URETERS and BLADDER:Renal cortical scarring. Right-sided renal calcifications are likely vascular. Left lower pole renal stone. No obstructive uropathy on either side. The bladder is distended but otherwise unremarkable. SPLEEN:Normal non-contrast appearance. PANCREAS: Normal non-contrast appearance. RETROPERITONEUM and MESENTERY: There is no mass, adenopathy or aortic aneurysm. Atherosclerotic vascular calcifications GASTROINTESTINAL SYSTEM: There is no evidence of diverticulitis, colitis, mechanical obstruction, or appendicitis. The small bowel as visualized appears normal.Fecal retention. Diverticulosis. PELVIS: Poorly evaluated due to streak artifact from bilateral hip orthopedic hardware. As visualized, there is no acute abnormality.. OSSEOUS STRUCTURES and ABDOMINAL WALL: Degenerative changes. Fat containing umbilical hernia.No significant abdominal wall defect. OTHER: No free fluid or free air. IMPRESSION: 1. There is no specific reversible cause for right upper quadrant abdominal pain. 2. Incidental nonacute appearing findings as discussed in the body the report. Please review the comments. Please note that all CT scans at this facility use dose modulation, iterative reconstruction, and/or weight-based dosing when appropriate to reduce radiation dose to as low as reasonably achievable. Dictated by Anjel Rice MD @ 07/21/2024 7:17:24 AM (Electronically Signed)
--- NOTE | 2024-07-21 07:22 | CRLHL7_ITS ---
For Patients: As a result of the Century Cures Act, medical imaging exams and procedure reports are released immediately into your electronic medical record. You may view this report before your referring provider. If you have questions, please contact your health care provider. Indication: Right upper quadrant abdominal pain Technique: Sonography of the abdomen was performed limited to the structures discussed below Comparison: A CT from earlier July 21, 2024 Findings: Gallbladder wall thickness is normal at 1.7 millimeters. Small stones are visible on the CT but are not visible on this examination. No pericholecystic fluid or reported sonographic Espinoza`s sign The common duct measures 5 millimeters which is normal The pancreas as visualized appears normal. Portions are obscured by bowel gas The right kidney is unremarkable in size and appearance specially on 0.5 x 6.1 x 4.8 centimeters. Visualized aorta and cava appear normal. The liver contains multiple hepatic cysts. No intrahepatic biliary ductal dilation Impression: 1. Multiple hepatic cysts. No intra or extrahepatic biliary ductal dilation. No visible solid mass. 2. The gallbladder appears normal by sonography. The small stones visible on the CT are not visible on the ultrasound. There is no evidence of acute cholecystitis or common duct obstruction. 3. Visualized pancreas and right kidney appear normal. Dictated by Anjel Rice MD @ 07/21/2024 10:11:13 AM (Electronically Signed)
[2024-07-21 07:50] LABS: NT Pro B Type NatriureticPept* 1190 pg/mL (See Note)
== END 2024-07-21 11:46 | disposition home or self-care (01) ==
PROVIDERS: Emergency Provider Family Medicine; PCP Family Medicine
DX: R10.11 Right upper quadrant pain (principal); R33.9 Retention of urine, unspecified; J81.1 Chronic pulmonary edema
CPT/HCPCS: 36415; 71045; 74176; 76705; 80048; 80076; 81001; 83690; 83880; 85025; 86140; 93005; 99284; 99285

== ENCOUNTER 2024-07-24 12:41 | Outpatient (CLI) | payer MEDICARE, BC, SELFPAY ==
--- NOTE | 2024-07-24 13:00 | CRLHL7_ITS ---
For Patients: As a result of the 21st Century Cures Act, medical imaging exams and procedure reports are released immediately into your electronic medical record. You may view this report before your referring provider. If you have questions, please contact your health care provider. INDICATION: 83-year-old man with history of right upper quadrant abdominal pain. TECHNIQUE: 7.5 mCi Tc 99m Mebrofenin were administered intravenously and serial static images were obtained over the anterior abdomen over 60 minutes (with immediate images following tracer injection and, 5, 10, 15, 30, 45 minute anterior planar static delay images, as well as a 50 minute lateral view), demonstrating radiotracer uptake within the gallbladder and demonstrating tracer exiting into the small bowel. Subsequently, 2.4 micrograms cholecystokinin was administered intravenously and the anterior abdomen was serially imaged with static views for another 30 minutes. COMPARISON: Abdominal ultrasound 07/21/2024. FINDINGS: Initial 50 minutes images: There is no evidence for cystic or common duct obstruction or intrinsic liver disease. Although the kinetics biliary excretion from the liver is incompletely assessed due to inconsistent time points, near-complete hepatic biliary clearance is demonstrated by the end of the initial images, which is within normal limits. After administration of cholecystokinin, minimal tracer is demonstrated exiting the gallbladder into the common bile duct and small bowel, with substantial residual tracer in the gallbladder. The gallbladder ejection fraction measures 30 %. Normal range for GB EF: Equal to or greater than 35%. IMPRESSION: 1. No evidence of cystic duct obstruction to support acute cholecystitis. No evidence of common bile duct obstruction. 2. Although the kinetics biliary excretion from the liver is incompletely assessed due to inconsistent time points, near-complete hepatic biliary clearance is demonstrated by the end of the initial images, which is within normal limits. 3. Gallbladder ejection fraction measures 30 %, below normal limits. Findings are nonspecific, but can be seen with gallbladder dysfunction. Dictated by Ricardo Ramirez MD @ 07/24/2024 9:37:08 PM (Electronically Signed)
== END 2024-07-24 12:42 | disposition home or self-care (01) ==
LOC: NM 12:43
PROVIDERS: PCP Family Medicine; Visit Provider Family Medicine
DX: R10.11 Right upper quadrant pain (principal)
CPT/HCPCS: 78227; A9537; J2805

== ENCOUNTER 2024-08-09 08:01 | Outpatient (CLI) | payer MEDICARE, BC, SELFPAY ==
--- NOTE | 2024-08-09 08:15 | CRLHL7_ITS ---
For Patients: As a result of the Century Cures Act, medical imaging exams and procedure reports are released immediately into your electronic medical record. You may view this report before your referring provider. If you have questions, please contact your health care provider. Technique: Double-contrast esophagram performed after the uneventful administration of effervescent crystals and thick barium followed by thin barium. Fluoroscopy time 38 seconds. Indication: Pharyngoesophageal dysphagia Comparison: None. Findings: A small sliding hiatal hernia is present measuring 2.8 cm. Mild spontaneous reflux noted. No esophageal irregularity or stricture. No ulcer or diverticulum. Mild decreased esophageal motility. Impression: Small sliding hiatal hernia with mild reflux and decreased esophageal motility. Dictated by Joo Corrigan MD @ 08/09/2024 10:44:08 AM (Electronically Signed)
== END 2024-08-09 08:02 | disposition home or self-care (01) ==
LOC: RAD 08:02
PROVIDERS: PCP Family Medicine; Visit Provider Internal Medicine Gastroenterology
DX: R13.14 Dysphagia, pharyngoesophageal phase (principal); K44.9 Diaphragmatic hernia without obstruction or gangrene; K21.9 Gastro-esophageal reflux disease without esophagitis
CPT/HCPCS: 74221

== ENCOUNTER 2024-08-23 06:16 | Day surgery (SDC) | payer MEDICARE, BC, SELFPAY ==
[2024-08-22] MEDS: PROCHLORPERAZINE 5 MG/ML VIAL IVP (09:05)
[2024-08-23] VITALS (17 sets, daily range): BP systolic 88–137; BP diastolic 55–90; PULSE 47–77; RESP 12–21; TEMP 36.2–37.2; O2SAT 91–100; BMI 38.4
[2024-08-23] MEDS: LACTATED RINGERS 1000 ML 1,000 ML 100 ML IV (06:50)
[2024-08-23] MEDS: SODIUM CHLORIDE 0.9 % (FLUSH) 10 ML SYRINGE IVF (06:50)
--- NOTE | 2024-08-23 07:20 | P.ANES_ITS ---
Anesthesia Charges Start Date/Time Anesthesia Start Date: 08/23/24 Anesthesia Start Time: 07:30 Stop Date/Time Anesthesia Stop Date: 08/23/24 Anesthesia Stop Time: 09:15 Summary Extremes of Age - Over 70 or under 1: MDA Coding CPT Codes CPT Codes: ANESTH SURG UPPER ABDOMEN - 55927 ([id number]) P3 - PATIENT W/SEVERE SYS DISEASE, QK - CAR MOVER 2-4 CNCRNT ANES PROC, QX - ESCROW CLERK SVC W/ MD MED DIRECTION Additional Codes: Summary - Extremes of Age - Over 70 or under 1: MDA ([id number])
--- NOTE | 2024-08-23 07:20 | W.ANESCHARGE ---
Anesthesia Charges Start Date/Time Anesthesia Start Date: 08/23/24 Anesthesia Start Time: 07:30 Stop Date/Time Anesthesia Stop Date: 08/23/24 Anesthesia Stop Time: 09:15 Summary Extremes of Age - Over 70 or under 1: MDA Coding CPT Codes CPT Codes: ANESTH SURG UPPER ABDOMEN - 49487 ([id number]) P3 - PATIENT W/SEVERE SYS DISEASE, QK - PREVENTIVE MAINTENANCE COORDINATOR 2-4 CNCRNT ANES PROC, QX - GRADE SETTER SVC W/ MD MED DIRECTION Additional Codes: Summary - Extremes of Age - Over 70 or under 1: MDA ([id number])
[2024-08-23] MEDS: CIPROFLOXACIN 400 MG/200 ML inj IVPB (07:51)
[2024-08-23] MEDS: metroNIDAZOLE 500 MG/100 ML for IV IVPB (07:52)
[2024-08-23] MEDS: BUPIVACAINE 0.5% 30 ML INJECTION (08:12)
--- NOTE | 2024-08-23 09:06 | P.GSOP_ITS ---
Operative Note Date of procedure: 08/23/24 Pre-op diagnosis: Biliary dyskinesia Post-op diagnosis: Same Type of Procedure: Laparoscopic cholecystectomy Indications: Patient is an 83-year-old male who presented to clinic with symptomatic abdominal pain. Workup was obtained with evidence of an abnormal HIDA scan, consistent with a diagnosis of biliary dyskinesia. Risks and benefits of operative intervention were discussed at length with the patient. Risks included but was not limited to: Bleeding, infection, risk of damage to surroun ding structures, possible need for additional procedures, [possible need to convert to an open operation] and postoperative complications such as pneumonia, pulmonary emboli or ND. All questions and concerns were addressed with the patient agreeing to proceed. Procedure Description: After discussing the risks and benefits of the procedure, the patient signed informed consent.? The operative site was marked and the patient was brought to the operating room and placed on the operating table in supine position.? Care was taken to pad the patient's pressure points.?? The patient was then intubated by anesthesia.?? The operative site was then prepped and draped in the usual sterile fashion.? A time-out was then performed. Entrance to the abdomen was gained via a 5 mm Visiport in the left upper quadrant. The abdomen was insufflated and briefly surveyed for signs of injury. There was none. 11 mm supra umbilical port was placed as well as 2 working ports along the right costal margin. Patient was then placed in reverse Trendelenburg position with the right side up. A complex cyst was seen on the inferior medial, 4B lobe. Septations were present but no solid structures. Another cyst was also seen on the underside of the anterior inferior 5 lobe. Care was taken to not disrupt these lesions during dissection of the gallbladder. The gallbladder fundus was grasped and retracted cephalad. The infundibulum was grasped. A combination of hook cautery and blunt dissection was used to carefully dissect out the cystic duct and artery until they could clearly be seen entering the gallbladder without any intervening structures. The gallbladder was dissected off the cystic plate to achieve the critical view. Once this was achieved the cystic duct and artery were each clipped with 2 clips proximally and 1 clip distally and transected with the scissors. The gallbladder was then taken off of the liver bed. During dissection a small artery high up on the gallbladder fossa was clipped with a 5 mm clipped before being transected. The gallbladder was then completely taken off the hepatic bed and removed from the abdomen using an Endo-Catch bag. The gallbladder bed was surveyed for hemostasis, which was excellent. The supraumbilical port was closed with 0 Vicryl via the Rom-Mckenna. All other ports were removed under direct visualization. The skin was closed with absorbable subcuticular suture. Instrument sponge and needle counts were correct at the end of the case. The patient was then woken and transferred to the PACU in stable condition. Findings: Normal appearing gallbladder. Two complex cysts of the liver. Anesthesia: GETA Surgeon: Veronica Stokes MD Estimated blood loss (mL): 25 Specimen: Gallbladder Condition: stable Disposition: PACU
--- NOTE | 2024-08-23 09:31 | P.ANES_ITS ---
Anesthesia Charges Start Date/Time Anesthesia Start Date: 08/23/24 Anesthesia Start Time: 07:30 Stop Date/Time Anesthesia Stop Date: 08/23/24 Anesthesia Stop Time: 09:15 Coding CPT Codes CPT Codes: ANESTH SURG UPPER ABDOMEN - 75421 ([id number]) P3 - PATIENT W/SEVERE SYS DISEASE, QK - APPARATUS OPERATOR 2-4 CNCRNT ANES PROC, QX - PERMASTONE APPLICATOR SVC W/ MD MED DIRECTION
--- NOTE | 2024-08-23 09:31 | W.ANESCHARGE ---
Anesthesia Charges Start Date/Time Anesthesia Start Date: 08/23/24 Anesthesia Start Time: 07:30 Stop Date/Time Anesthesia Stop Date: 08/23/24 Anesthesia Stop Time: 09:15 Coding CPT Codes CPT Codes: ANESTH SURG UPPER ABDOMEN - 02783 ([id number]) P3 - PATIENT W/SEVERE SYS DISEASE, QK - EXTERIOR DESIGNER 2-4 CNCRNT ANES PROC, QX - SENIOR JAVA WEB DEVELOPER SVC W/ MD MED DIRECTION
--- NOTE | 2024-08-23 10:08 | SUR.PHASEI ---
patient met discharge criteria per anesthesia
== END 2024-08-23 11:09 | disposition home or self-care (01) ==
PROVIDERS: PCP Family Medicine; Visit Provider Surgery
PROC: 0FT44ZZ Resection of Gallbladder, Percutaneous Endoscopic Approach (ICD-10-PCS; CPT 47562; principal; 2024-08-23 07:30)
DX: K82.8 Other specified diseases of gallbladder (principal); R10.11 Right upper quadrant pain; E11.9 Type 2 diabetes mellitus without complications; Z79.4 Long term (current) use of insulin; Z79.84 Long term (current) use of oral hypoglycemic drugs
CPT/HCPCS: 47562; 00790; 82962; 88304; 99100; J0330; J0665; J0744; J0780; J1100; J1171; J1836; J2371; J2405; J2704; J3010; J3490; J7120